=== PATIENT | male | born 1955 | race Caucasian/White ===

== ENCOUNTER 2020-06-17 10:20 | Observation (INO) | payer OTHER ==
[2020-06-17 14:56] LABS: INFLUENZA A NEGATIVE (NEGATIVE); INFLUENZA B NEGATIVE (NEGATIVE); RESPIRATORY SYNCTIAL VIRUS NEGATIVE (Negative)
[2020-06-17] MEDS: Sodium Chloride 0.9% 1000 ML 1,000 ML IV SCH ×2 (15:39→20:54)
[2020-06-17 16:32] LABS: Absolute Neutrophil Ct (ANC) 6.48 (1.4-6.9); BASOPHIL % 0.2 % (0.0-0.4); Basophil (Absolute #) 0.02 (0-0.4); Eosinophil % 2.3 % (0.00-5.0); Eosinophil (Absolute #) 0.21 (0-0.5); Hematocrit 45.9 % (42-50); Lymphocyte (Absolute #) 1.73 (1.0-4.6); Lymphocytes % 18.7 % (24.0-44.0); Mean Cell Volume 89.8 fl (78-100); Mean Corpuscular Hemoglobin 29.4 pg (26-32); Mean Corpuscular Hgb Concent. 32.7 g/dl (32-36); Mean Platelet Volume 9.9 fl (7.5-11.0); Monocyte (Absolute #) 0.82 (0.0-1.3); Monocytes % 8.9 % (0.0-12.0); Neutrophil % 69.9 % (36.0-66.0); Platelet Count 222 K/mm3 (150-450); Red Blood Count 5.11 M/mm3 (4.1-5.6); Red Cell Distribution Width 13.4 % (11.5-14.0); White Blood Count 9.3 K/mm3 (4.0-10.5)
[2020-06-17 16:44] LABS: ALBUMIN 4.6 g/dL (3.5-5.0); ALKALINE PHOSPHATASE 68 U/L (38-126); AMYLASE 125 U/L (30-110); ANION GAP 14.3 MEQ/L (5-15); BLOOD UREA NITROGEN 25 mg/dL (9-20); CHLORIDE 101 mmol/L (98-107); Calcium 10.2 mg/dL (8.4-10.2); Carbon Dioxide 25 mmol/L (22-30); Creatinine 1 1.01 mg/dL (0.66-1.25); EST GLOMERULAR FILTRATION RATE > 60.0 ML/MIN; Glucose 146 mg/dL (74-106); LIPASE 365 U/L (23-300); Potassium 4.3 mmol/L (3.5-5.1); SGOT/AST 27 U/L (17-59); SGPT/ALT 20 U/L (0-50); SODIUM 136 mmol/L (137-145); Total Protein 7.2 g/dL (6.3-8.2)
[2020-06-17] MEDS ORDERED: PROTONIX 40 MG IV IV ONE (18:13)
[2020-06-17] MEDS ORDERED: Ambien 10 MG PO SCH (22:00)
--- NOTE | 2020-06-17 22:14 | PCM.HP ---
History of Present Illness - Chief Complaint Chief Complaint: pancreatitis Date: 06/17/20 History of Present Illness: is a 64 year old male seen in clinic yesterday for reported diarrhea for one month. Following clinic visit patient had labs drawn which demonstrated he had acute pancreatitis and FOBT positive. Patient reports he is currently pain free but had umbilical abdominal pain during yesterday's exam. He reports dark tarry stools. He stated today he had a similar episode 1.5 years ago and had colonoscopy which he reports was normal but showed diverticulosis. , present at bedside had wanted him to see a doctor due to the weight loss he has had over the past month. Patient denies fevers nausea or vomiting. Denies much alcohol use. Reports he still has his GB. Denies eating a diverticulosis diet. He went to [facility] prior to admission and ate cookies and other food items in anticipation of being admitted but had been eating a BRAT type diet up to that point. He was covid tested as part of the admission process and was found to be covid neg. Medications & Allergies Home Medications: Home Medication List Acetaminophen/Dp-Hydram HCl [Tylenol Pm Ex-Strength Geltab] 1 each PO QHS 12/19/14 [History Confirmed 06/17/20] Atorvastatin Calcium [Lipitor] 20 mg PO DAILY 12/19/14 [History Confirmed 06/17/20] Testosterone [Axiron] 90 ml TD UD 12/19/14 [History Confirmed 06/17/20] Zolpidem Tartrate [Ambien Cr] 12.5 mg PO QHS 12/19/14 [History Confirmed 06/17/20] Acetaminophen [Tylenol Extra Strength] 500 mg PO HS 06/17/20 [History Confirmed 06/17/20] Aspirin EC 325 mg [Ecotrin 325 MG] 0.5 tab PO DAILY 06/17/20 [History Confirmed 06/17/20] Celecoxib [Celebrex] 400 mg PO BID 06/17/20 [History Confirmed 06/17/20] Duloxetine HCl [Cymbalta] 60 mg PO DAILY 06/17/20 [History Confirmed 06/17/20] Famotidine [Pepcid] 40 mg PO HS 06/17/20 [History Confirmed 06/17/20] Ketoconazole Cream [Nizoral CREAM] 1 gm TOP DAILY 06/17/20 [History Confirmed 06/17/20] Melatonin 10 mg PO HS 06/17/20 [History Confirmed 06/17/20] Metformin HCl 500 mg [Glucophage 500 MG] 500 mg PO BID 06/17/20 [History Confirmed 06/17/20] Multivitamin 1 each PO DAILY 06/17/20 [History Confirmed 06/17/20] Urea [Urea 40] 236 ml TP HS 06/17/20 [History Confirmed 06/17/20] Allergies/Adverse Reactions: Allergies Allergy/AdvReac Type Severity Reaction Status Date / Time No Known Drug Allergies Allergy Verified 06/17/20 15:55 - Past Medical History Past Medical History: Yes Neurological History: No Pertinent History ENT History: No Pertinent History Cardiac History: High Cholesterol Respiratory History: No Pertinent History Endocrine Medical History: Diabetes Type II Musculoskelatal History: No Pertinent History GI Medical History: Ulcer History: No Pertinent History Pyscho-Social History: No Pertinent History Male Reproductive Disorders: No Pertinent History Comment: colonoscopy, skin cancer removed chest - Past Surgical History Past Surgical History: Yes Neuro Surgical History: No Pertinent History Cardiac History: Cardiac Catheterization Respiratory Surgery: No Pertinent History GI Surgical History: Hemorrhoidectomy, Hernia Repair Genitourinary Surgical Hx: No Pertinent History Musculskeletal Surgical Hx: Other Male Surgical History: No Pertinent History Other Surgical History: rotator cuff repair. tonsillectomy - Social History Smoking Status: Former smoker Exposure to second hand smoke: No Alcohol: None Drug Use: none - Physical Exam Vital Signs: Vital Signs - 24 hr Temp Pulse Resp BP Pulse Ox 06/17/20 19:26 97.5 F 80 18 110/67 93 L 06/17/20 16:00 97.6 F 96 H 20 122/75 94 L 06/17/20 15:55 97.6 F 96 H 20 122/75 96 Results - Labs Lab/Micro Results: Lab Results-Last 24 Hours 06/17/20 06/17/20 06/17/20 Range/Units 14:07 15:41 16:24 WBC 9.3 (4.0-10.5) K/mm3 RBC 5.11 (4.1-5.6) M/mm3 Hgb 15.0 (12.5-18.0) gm/dl Hct 45.9 (42-50) % MCV 89.8 (78-100) fl MCH 29.4 (26-32) pg MCHC 32.7 (32-36) g/dl RDW 13.4 (11.5-14.0) % Plt Count 222 (150-450) K/mm3 MPV 9.9 (7.5-11.0) fl Gran % 69.9 H (36.0-66.0) % Eos # (Auto) 0.21 (0-0.5) Absolute Lymphs (auto) 1.73 (1.0-4.6) Absolute Monos (auto) 0.82 (0.0-1.3) Lymphocytes % 18.7 L (24.0-44.0) % Monocytes % 8.9 (0.0-12.0) % Eosinophils % 2.3 (0.00-5.0) % Basophils % 0.2 (0.0-0.4) % Absolute Granulocytes 6.48 (1.4-6.9) Basophils # 0.02 (0-0.4) Sodium (137-145) mmol/L Potassium (3.5-5.1) mmol/L Chloride (98-107) mmol/L Carbon Dioxide (22-30) mmol/L Anion Gap (5-15) MEQ/L BUN (9-20) mg/dL Creatinine (0.66-1.25) mg/dL Estimated GFR ML/MIN Glucose (74-106) mg/dL POC Glucometer 156 H (74 to 106) mg/dL Calcium (8.4-10.2) mg/dL Total Bilirubin (0.2-1.3) mg/dL AST (17-59) U/L ALT (0-50) U/L Alkaline Phosphatase (38-126) U/L Serum Total Protein (6.3-8.2) g/dL Albumin (3.5-5.0) g/dL Amylase (30-110) U/L Lipase (23-300) U/L Influenza Type A Ag NEGATIVE (NEGATIVE) Influenza Type B Ag NEGATIVE (NEGATIVE) RSV (PCR) NEGATIVE (Negative) SARS-CoV-2 (PCR) NEGATIVE (NEGATIVE) 06/17/20 06/17/20 Range/Units 16:24 20:41 WBC (4.0-10.5) K/mm3 RBC (4.1-5.6) M/mm3 Hgb (12.5-18.0) gm/dl Hct (42-50) % MCV (78-100) fl MCH (26-32) pg MCHC (32-36) g/dl RDW (11.5-14.0) % Plt Count (150-450) K/mm3 MPV (7.5-11.0) fl Gran % (36.0-66.0) % Eos # (Auto) (0-0.5) Absolute Lymphs (auto) (1.0-4.6) Absolute Monos (auto) (0.0-1.3) Lymphocytes % (24.0-44.0) % Monocytes % (0.0-12.0) % Eosinophils % (0.00-5.0) % Basophils % (0.0-0.4) % Absolute Granulocytes (1.4-6.9) Basophils # (0-0.4) Sodium 136 L (137-145) mmol/L Potassium 4.3 (3.5-5.1) mmol/L Chloride 101 (98-107) mmol/L Carbon Dioxide 25 (22-30) mmol/L Anion Gap 14.3 (5-15) MEQ/L BUN 25 H (9-20) mg/dL Creatinine 1.01 (0.66-1.25) mg/dL Estimated GFR > 60.0 ML/MIN Glucose 146 H (74-106) mg/dL POC Glucometer 83 (74 to 106) mg/dL Calcium 10.2 (8.4-10.2) mg/dL Total Bilirubin 0.30 (0.2-1.3) mg/dL AST 27 (17-59) U/L ALT 20 (0-50) U/L Alkaline Phosphatase 68 (38-126) U/L Serum Total Protein 7.2 (6.3-8.2) g/dL Albumin 4.6 (3.5-5.0) g/dL Amylase 125 H (30-110) U/L Lipase 365 H (23-300) U/L Influenza Type A Ag (NEGATIVE) Influenza Type B Ag (NEGATIVE) RSV (PCR) (Negative) SARS-CoV-2 (PCR) (NEGATIVE) - Radiology Impressions Radiology Exams & Impressions: Radiology Procedures Category Date Time Status ABDOMEN AND PELVIS W&WO CONTRA [CT] Stat Exams 06/17/20 17:30 Taken Assessment/Plan (1) Pancreatitis Current Visit: Yes Status: Acute Assessment & Plan: 64 yr old male admitted for observation for acute pancreatitis. Patient had repeat labs today which have trended down. He is getting IV fluids 250ml per hour and was made NPO. CT scan was ordered results pending. Patient denies pain at this time. Will transition patient to clear liquid diet and see if he continues to be pain free. Resumed his ambien for sleep. Held most home medications until CT scan is read. Patient may require surgery consult based on findings. Patient will need repeat CMP in am. Code(s): K85.90 - ACUTE PANCREATITIS WITHOUT NECROSIS OR INFECTION, UNSP (2) Occult blood in stools Current Visit: Yes Status: Acute Assessment & Plan: Hx of diverticulosis differentials include diverticulitis flare IBD PUD or other etiology. CT results still pending. Patient was started on protonix 1 time dose but depending on CT results may continue with this medication. Aspirin and celebrex were held for time being.Will consider antibiotics if diverticulitis is present (3) Diarrhea Current Visit: Yes Status: Acute Assessment & Plan: GI panel for stool was ordered yesterday as an outpatient results still pending. Patient may have diverticulitis flare or other etiology causing symptoms. He has lost weight over the past month. Will follow up on CT and get possible surgery consult or have patient follow up with GI as outpatient. Code(s): R19.7 - DIARRHEA, UNSPECIFIED (4) Diabetes Current Visit: Yes Status: Acute Assessment & Plan: Holding metformin due to CT scan. Patient is transitioning to clears. Will get BS AC and HS and place patient on low dose sliding scale if needed. Code(s): E11.9 - TYPE 2 DIABETES MELLITUS WITHOUT COMPLICATIONS (5) Mixed anxiety and depressive disorder Current Visit: Yes Status: Acute Assessment & Plan: Will plan to resume his home med in am iif CT is wnl. (6) Insomnia Current Visit: Yes Status: Acute Assessment & Plan: Patient will continue his routine ambien PO. reports he wont sleep if he is not given this medication. Avoiding PO until CT scan is read. Code(s): G47.00 - INSOMNIA, UNSPECIFIED
[2020-06-18] MEDS: Sodium Chloride 0.9% 1000 ML 1,000 ML IV SCH ×3 (01:13→09:35)
--- NOTE | 2020-06-18 08:41 | XRAY ---
Indication: Diarrhea one month. Acute pancreatitis. Multiple contiguous axial images obtained through the abdomen and pelvis prior to and following 80 cc Isovue 370 contrast as ordered. Comparison: None Lung bases are clear. Heart is not enlarged. Noncontrasted images demonstrates 3 mm nonobstructing right renal calculus and tiny appendicolith. No other visceral calcifications/calculi. Noncontrasted stomach and bowel loops appear nonobstructed. No free fluid/air. Postcontrast images demonstrates normal visceral enhancement and renal excretion. Right kidney demonstrates 4.6 cm parapelvic cyst. Remaining liver, gallbladder, pancreas, spleen, adrenal glands, kidneys, ureters, and bladder appear normal in CT appearance and attenuation. Mild scattered aortoiliac calcifications. No AAA or pathologic retroperitoneal lymphadenopathy. Osseous structures intact with mild/moderate multilevel degenerative spondylosis, greatest lumbar spine. Small fatty right inguinal hernia. Impression: 1. Nonobstructing right renal micro-calculus, right renal parapelvic cyst, fatty right inguinal hernia, appendicolith, and chronic bony findings. 2. Remaining CT abdomen/pelvis with and without contrast exam is negative.
--- NOTE | 2020-06-18 09:21 | PCM.NOTE ---
Date and Time: 06/18/2015 Subjective Assessment: patient denies pain today, states he feels well and wants to go home. denies vomiting or diarrhea overnight. Objective Exam General Appearance: no apparent distress, alert Respiratory Exam: normal breath sounds, lungs clear, No respiratory distress Cardiovascular Exam: regular rate/rhythm, normal heart sounds Gastrointestinal/Abdomen Exam: soft, No tenderness, No mass OBJECTIVE DATA Vital Signs: Vital Signs - 24 hr Temp Pulse Resp BP Pulse Ox 06/18/20 08:00 98.0 F 77 16 113/74 95 06/18/20 03:59 97.3 F 77 19 142/69 95 06/18/20 00:00 97.7 F 74 19 137/77 96 06/17/20 19:26 97.5 F 80 18 110/67 93 L 06/17/20 16:00 97.6 F 96 H 20 122/75 94 L 06/17/20 15:55 97.6 F 96 H 20 122/75 96 Pain Assessment - Last Documented Pain Intensity 0 Intake and Output: Intake & Output 06/15/20 06/16/20 06/17/20 06/18/20 11:59 11:59 11:59 11:59 Intake Total 3894 Balance 3894 Weight 76.8 kg Lab Results: Lab Results-Last 24 Hours 06/17/20 06/17/20 06/17/20 Range/Units 14:07 15:41 16:24 WBC 9.3 (4.0-10.5) K/mm3 RBC 5.11 (4.1-5.6) M/mm3 Hgb 15.0 (12.5-18.0) gm/dl Hct 45.9 (42-50) % MCV 89.8 (78-100) fl MCH 29.4 (26-32) pg MCHC 32.7 (32-36) g/dl RDW 13.4 (11.5-14.0) % Plt Count 222 (150-450) K/mm3 MPV 9.9 (7.5-11.0) fl Gran % 69.9 H (36.0-66.0) % Eos # (Auto) 0.21 (0-0.5) Absolute Lymphs (auto) 1.73 (1.0-4.6) Absolute Monos (auto) 0.82 (0.0-1.3) Lymphocytes % 18.7 L (24.0-44.0) % Monocytes % 8.9 (0.0-12.0) % Eosinophils % 2.3 (0.00-5.0) % Basophils % 0.2 (0.0-0.4) % Absolute Granulocytes 6.48 (1.4-6.9) Basophils # 0.02 (0-0.4) Sodium (137-145) mmol/L Potassium (3.5-5.1) mmol/L Chloride (98-107) mmol/L Carbon Dioxide (22-30) mmol/L Anion Gap (5-15) MEQ/L BUN (9-20) mg/dL Creatinine (0.66-1.25) mg/dL Estimated GFR ML/MIN Glucose (74-106) mg/dL POC Glucometer 156 H (74 to 106) mg/dL Calcium (8.4-10.2) mg/dL Total Bilirubin (0.2-1.3) mg/dL AST (17-59) U/L ALT (0-50) U/L Alkaline Phosphatase (38-126) U/L Serum Total Protein (6.3-8.2) g/dL Albumin (3.5-5.0) g/dL Amylase (30-110) U/L Lipase (23-300) U/L Influenza Type A Ag NEGATIVE (NEGATIVE) Influenza Type B Ag NEGATIVE (NEGATIVE) RSV (PCR) NEGATIVE (Negative) SARS-CoV-2 (PCR) NEGATIVE (NEGATIVE) 06/17/20 06/17/20 06/18/20 Range/Units 16:24 20:41 07:10 WBC (4.0-10.5) K/mm3 RBC (4.1-5.6) M/mm3 Hgb (12.5-18.0) gm/dl Hct (42-50) % MCV (78-100) fl MCH (26-32) pg MCHC (32-36) g/dl RDW (11.5-14.0) % Plt Count (150-450) K/mm3 MPV (7.5-11.0) fl Gran % (36.0-66.0) % Eos # (Auto) (0-0.5) Absolute Lymphs (auto) (1.0-4.6) Absolute Monos (auto) (0.0-1.3) Lymphocytes % (24.0-44.0) % Monocytes % (0.0-12.0) % Eosinophils % (0.00-5.0) % Basophils % (0.0-0.4) % Absolute Granulocytes (1.4-6.9) Basophils # (0-0.4) Sodium 136 L (137-145) mmol/L Potassium 4.3 (3.5-5.1) mmol/L Chloride 101 (98-107) mmol/L Carbon Dioxide 25 (22-30) mmol/L Anion Gap 14.3 (5-15) MEQ/L BUN 25 H (9-20) mg/dL Creatinine 1.01 (0.66-1.25) mg/dL Estimated GFR > 60.0 ML/MIN Glucose 146 H (74-106) mg/dL POC Glucometer 83 86 (74 to 106) mg/dL Calcium 10.2 (8.4-10.2) mg/dL Total Bilirubin 0.30 (0.2-1.3) mg/dL AST 27 (17-59) U/L ALT 20 (0-50) U/L Alkaline Phosphatase 68 (38-126) U/L Serum Total Protein 7.2 (6.3-8.2) g/dL Albumin 4.6 (3.5-5.0) g/dL Amylase 125 H (30-110) U/L Lipase 365 H (23-300) U/L Influenza Type A Ag (NEGATIVE) Influenza Type B Ag (NEGATIVE) RSV (PCR) (Negative) SARS-CoV-2 (PCR) (NEGATIVE) Radiology Exams: Radiology Procedures Category Date Time Status ABDOMEN AND PELVIS W&WO CONTRA [CT] Stat Exams 06/17/20 17:30 Completed Assessment/Plan (1) Pancreatitis Current Visit: Yes Status: Acute Assessment & Plan: exam benign, repeat labs, tolerating clears. if enzymes improved will advance diet, possibly home this afternoon if tolerating po intake. Code(s): K85.90 - ACUTE PANCREATITIS WITHOUT NECROSIS OR INFECTION, UNSP (2) Occult blood in stools Current Visit: Yes Status: Acute Assessment & Plan: repeat labs, no further stools overnight. if h/h stable can likely have endoscopic evaluation as outpatient since patient desires discharge as soon as possible
[2020-06-18 09:35] LABS: ALBUMIN 3.5 g/dL (3.5-5.0); ALKALINE PHOSPHATASE 52 U/L (38-126); ANION GAP 10.3 MEQ/L (5-15); BLOOD UREA NITROGEN 13 mg/dL (9-20); CHLORIDE 106 mmol/L (98-107); Calcium 8.6 mg/dL (8.4-10.2); Carbon Dioxide 24 mmol/L (22-30); Creatinine 1 0.91 mg/dL (0.66-1.25); EST GLOMERULAR FILTRATION RATE > 60.0 ML/MIN; Glucose 134 mg/dL (74-106); Potassium 4.2 mmol/L (3.5-5.1); SGOT/AST 19 U/L (17-59); SGPT/ALT 16 U/L (0-50); SODIUM 136 mmol/L (137-145); Total Protein 5.8 g/dL (6.3-8.2)
[2020-06-18] MEDS ORDERED: Nizoral CREAM TOP SCH (10:00)
[2020-06-18 10:29] LABS: Absolute Neutrophil Ct (ANC) 3.63 (1.4-6.9); BASOPHIL % 0.5 % (0.0-0.4); Basophil (Absolute #) 0.03 (0-0.4); Eosinophil % 4.3 % (0.00-5.0); Eosinophil (Absolute #) 0.24 (0-0.5); Hematocrit 42.2 % (42-50); Hemoglobin 13.5 gm/dl (12.5-18.0); Lymphocyte (Absolute #) 1.14 (1.0-4.6); Lymphocytes % 20.2 % (24.0-44.0); Mean Cell Volume 91.7 fl (78-100); Mean Corpuscular Hemoglobin 29.3 pg (26-32); Mean Platelet Volume 9.5 fl (7.5-11.0); Monocyte (Absolute #) 0.59 (0.0-1.3); Monocytes % 10.5 % (0.0-12.0); Neutrophil % 64.5 % (36.0-66.0); Platelet Count 187 K/mm3 (150-450); Red Cell Distribution Width 13.4 % (11.5-14.0); White Blood Count 5.6 K/mm3 (4.0-10.5)
[2020-06-18 11:29] VITALS: BP 122/78; PULSE 70; O2SAT 99
--- NOTE | 2020-06-18 11:33 | PCM.DS ---
Discharge Summary Date of Admission: 06/17/20 15:24 Admitting Physician: GINA PRADO MD Primary Care Provider: GINA PRADO MD Allergies Allergies No Known Drug Allergies Allergy (Verified 06/17/20 15:55) Hospital Summary - Hospital Course Hospital Course: patient was admitted with pancreatitis, enzymes normalized on clears. heme + stool but h/h stable, had drop in hgb that was mild but has been receiving aggressive IV fluids at 250mL/hr - Vitals & Intake/Output Vital Signs: Vital Signs Temperature 98.0 F 06/18/20 08:00 Pulse Rate 77 06/18/20 08:00 Respiratory Rate 16 06/18/20 08:00 Blood Pressure 113/74 06/18/20 08:00 O2 Sat by Pulse Oximetry 95 06/18/20 08:00 Intake & Output: Intake & Output 06/15/20 06/16/20 06/17/20 06/18/20 11:59 11:59 11:59 11:59 Intake Total 4474 Balance 4474 Weight 76.8 kg - Lab Result Diagrams: 06/18/20 10:00 06/18/20 09:22 Lab Results-Last 24 Hrs: Lab Results-Last 24 Hours 06/17/20 06/17/20 06/17/20 Range/Units 14:07 15:41 16:24 WBC 9.3 (4.0-10.5) K/mm3 RBC 5.11 (4.1-5.6) M/mm3 Hgb 15.0 (12.5-18.0) gm/dl Hct 45.9 (42-50) % MCV 89.8 (78-100) fl MCH 29.4 (26-32) pg MCHC 32.7 (32-36) g/dl RDW 13.4 (11.5-14.0) % Plt Count 222 (150-450) K/mm3 MPV 9.9 (7.5-11.0) fl Gran % 69.9 H (36.0-66.0) % Eos # (Auto) 0.21 (0-0.5) Absolute Lymphs (auto) 1.73 (1.0-4.6) Absolute Monos (auto) 0.82 (0.0-1.3) Lymphocytes % 18.7 L (24.0-44.0) % Monocytes % 8.9 (0.0-12.0) % Eosinophils % 2.3 (0.00-5.0) % Basophils % 0.2 (0.0-0.4) % Absolute Granulocytes 6.48 (1.4-6.9) Basophils # 0.02 (0-0.4) Sodium (137-145) mmol/L Potassium (3.5-5.1) mmol/L Chloride (98-107) mmol/L Carbon Dioxide (22-30) mmol/L Anion Gap (5-15) MEQ/L BUN (9-20) mg/dL Creatinine (0.66-1.25) mg/dL Estimated GFR ML/MIN Glucose (74-106) mg/dL POC Glucometer 156 H (74 to 106) mg/dL Calcium (8.4-10.2) mg/dL Total Bilirubin (0.2-1.3) mg/dL AST (17-59) U/L ALT (0-50) U/L Alkaline Phosphatase (38-126) U/L Serum Total Protein (6.3-8.2) g/dL Albumin (3.5-5.0) g/dL Amylase (30-110) U/L Lipase (23-300) U/L Influenza Type A Ag NEGATIVE (NEGATIVE) Influenza Type B Ag NEGATIVE (NEGATIVE) RSV (PCR) NEGATIVE (Negative) SARS-CoV-2 (PCR) NEGATIVE (NEGATIVE) 06/17/20 06/17/20 06/18/20 Range/Units 16:24 20:41 07:10 WBC (4.0-10.5) K/mm3 RBC (4.1-5.6) M/mm3 Hgb (12.5-18.0) gm/dl Hct (42-50) % MCV (78-100) fl MCH (26-32) pg MCHC (32-36) g/dl RDW (11.5-14.0) % Plt Count (150-450) K/mm3 MPV (7.5-11.0) fl Gran % (36.0-66.0) % Eos # (Auto) (0-0.5) Absolute Lymphs (auto) (1.0-4.6) Absolute Monos (auto) (0.0-1.3) Lymphocytes % (24.0-44.0) % Monocytes % (0.0-12.0) % Eosinophils % (0.00-5.0) % Basophils % (0.0-0.4) % Absolute Granulocytes (1.4-6.9) Basophils # (0-0.4) Sodium 136 L (137-145) mmol/L Potassium 4.3 (3.5-5.1) mmol/L Chloride 101 (98-107) mmol/L Carbon Dioxide 25 (22-30) mmol/L Anion Gap 14.3 (5-15) MEQ/L BUN 25 H (9-20) mg/dL Creatinine 1.01 (0.66-1.25) mg/dL Estimated GFR > 60.0 ML/MIN Glucose 146 H (74-106) mg/dL POC Glucometer 83 86 (74 to 106) mg/dL Calcium 10.2 (8.4-10.2) mg/dL Total Bilirubin 0.30 (0.2-1.3) mg/dL AST 27 (17-59) U/L ALT 20 (0-50) U/L Alkaline Phosphatase 68 (38-126) U/L Serum Total Protein 7.2 (6.3-8.2) g/dL Albumin 4.6 (3.5-5.0) g/dL Amylase 125 H (30-110) U/L Lipase 365 H (23-300) U/L Influenza Type A Ag (NEGATIVE) Influenza Type B Ag (NEGATIVE) RSV (PCR) (Negative) SARS-CoV-2 (PCR) (NEGATIVE) 06/18/20 06/18/20 06/18/20 Range/Units 09:22 10:00 10:00 WBC 5.6 (4.0-10.5) K/mm3 RBC 4.60 (4.1-5.6) M/mm3 Hgb 13.5 (12.5-18.0) gm/dl Hct 42.2 (42-50) % MCV 91.7 (78-100) fl MCH 29.3 (26-32) pg MCHC 32.0 (32-36) g/dl RDW 13.4 (11.5-14.0) % Plt Count 187 (150-450) K/mm3 MPV 9.5 (7.5-11.0) fl Gran % 64.5 (36.0-66.0) % Eos # (Auto) 0.24 (0-0.5) Absolute Lymphs (auto) 1.14 (1.0-4.6) Absolute Monos (auto) 0.59 (0.0-1.3) Lymphocytes % 20.2 L (24.0-44.0) % Monocytes % 10.5 (0.0-12.0) % Eosinophils % 4.3 (0.00-5.0) % Basophils % 0.5 (0.0-0.4) % Absolute Granulocytes 3.63 (1.4-6.9) Basophils # 0.03 (0-0.4) Sodium 136 L (137-145) mmol/L Potassium 4.2 (3.5-5.1) mmol/L Chloride 106 (98-107) mmol/L Carbon Dioxide 24 (22-30) mmol/L Anion Gap 10.3 (5-15) MEQ/L BUN 13 (9-20) mg/dL Creatinine 0.91 (0.66-1.25) mg/dL Estimated GFR > 60.0 ML/MIN Glucose 134 H (74-106) mg/dL POC Glucometer (74 to 106) mg/dL Calcium 8.6 D (8.4-10.2) mg/dL Total Bilirubin 0.50 (0.2-1.3) mg/dL AST 19 (17-59) U/L ALT 16 (0-50) U/L Alkaline Phosphatase 52 (38-126) U/L Serum Total Protein 5.8 L (6.3-8.2) g/dL Albumin 3.5 (3.5-5.0) g/dL Amylase (30-110) U/L Lipase 81 (23-300) U/L Influenza Type A Ag (NEGATIVE) Influenza Type B Ag (NEGATIVE) RSV (PCR) (Negative) SARS-CoV-2 (PCR) (NEGATIVE) 06/18/20 Range/Units 10:00 WBC (4.0-10.5) K/mm3 RBC (4.1-5.6) M/mm3 Hgb (12.5-18.0) gm/dl Hct (42-50) % MCV (78-100) fl MCH (26-32) pg MCHC (32-36) g/dl RDW (11.5-14.0) % Plt Count (150-450) K/mm3 MPV (7.5-11.0) fl Gran % (36.0-66.0) % Eos # (Auto) (0-0.5) Absolute Lymphs (auto) (1.0-4.6) Absolute Monos (auto) (0.0-1.3) Lymphocytes % (24.0-44.0) % Monocytes % (0.0-12.0) % Eosinophils % (0.00-5.0) % Basophils % (0.0-0.4) % Absolute Granulocytes (1.4-6.9) Basophils # (0-0.4) Sodium (137-145) mmol/L Potassium (3.5-5.1) mmol/L Chloride (98-107) mmol/L Carbon Dioxide (22-30) mmol/L Anion Gap (5-15) MEQ/L BUN (9-20) mg/dL Creatinine (0.66-1.25) mg/dL Estimated GFR ML/MIN Glucose (74-106) mg/dL POC Glucometer (74 to 106) mg/dL Calcium (8.4-10.2) mg/dL Total Bilirubin (0.2-1.3) mg/dL AST (17-59) U/L ALT (0-50) U/L Alkaline Phosphatase (38-126) U/L Serum Total Protein (6.3-8.2) g/dL Albumin (3.5-5.0) g/dL Amylase 61 (30-110) U/L Lipase (23-300) U/L Influenza Type A Ag (NEGATIVE) Influenza Type B Ag (NEGATIVE) RSV (PCR) (Negative) SARS-CoV-2 (PCR) (NEGATIVE) Micro Results-Entire Visit: Accuchecks Date 06/18/20 Date 06/17/20 Time 07:12 Time 22:00 - Radiology Exams Ordered Rad Exams-Entire Visit: Radiology Procedures Category Date Time Status ABDOMEN AND PELVIS W&WO CONTRA [CT] Stat Exams 06/17/20 17:30 Completed Discharge Exam General Appearance: no apparent distress, alert Respiratory Exam: normal breath sounds, lungs clear, No respiratory distress Cardiovascular Exam: regular rate/rhythm, normal heart sounds Gastrointestinal/Abdomen Exam: soft, No tenderness, No mass Extremity Exam: normal inspection, normal range of motion Skin Exam: normal color, warm, dry Final Diagnosis/Problem List - Final Discharge Diagnosis/Problem (1) Pancreatitis Current Visit: Yes Status: Acute Assessment & Plan: resolved, home on bland diet Code(s): K85.90 - ACUTE PANCREATITIS WITHOUT NECROSIS OR INFECTION, UNSP (2) Occult blood in stools Current Visit: Yes Status: Acute Assessment & Plan: will need f/u with Dr Prado and scheduled outpatient for egd/colonoscopy. stop aspirin and celebrex, add PPI therapy - Discharge Disposition: Home, Self-Care Condition: Stable Prescriptions: New Omeprazole 40 mg PO DAILY #30 capsule.dr Continue Atorvastatin Calcium [Lipitor] 20 mg PO DAILY Testosterone [Axiron] 90 ml TD UD Zolpidem Tartrate [Ambien Cr] 12.5 mg PO QHS Acetaminophen/Dp-Hydram HCl [Tylenol Pm Ex-Strength Geltab] 1 each PO QHS Multivitamin 1 each PO DAILY Metformin HCl 500 mg [Glucophage 500 MG] 500 mg PO BID Duloxetine HCl [Cymbalta] 60 mg PO DAILY Famotidine [Pepcid] 40 mg PO HS Melatonin 10 mg PO HS Ketoconazole Cream [Nizoral CREAM] 1 gm TOP DAILY Urea [Urea 40] 236 ml TP HS Acetaminophen [Tylenol Extra Strength] 500 mg PO HS Discontinued Aspirin EC 325 mg [Ecotrin 325 MG] 0.5 tab PO DAILY Celecoxib [Celebrex] 400 mg PO BID Follow up with: GINA PRADO MD [Primary Care Provider] - 1 Week
[2020-06-18] MEDS ORDERED: Ambien 5 MG Tablet PO SCH (22:00)
== END 2020-06-18 13:40 | disposition home or self-care (01) ==
LOC: MED SURG 15:24
PROVIDERS: ADMIT Family Medicine; ATTEND Family Medicine
DX: K85.90 Acute pancreatitis without necrosis or infection, unspecified (principal); K92.1 Melena; Z79.899 Other long term (current) drug therapy; E11.9 Type 2 diabetes mellitus without complications; E78.00 Pure hypercholesterolemia, unspecified; R19.7 Diarrhea, unspecified; F41.8 Other specified anxiety disorders; G47.00 Insomnia, unspecified
CPT/HCPCS: 0241U; 36415; 74178; 80053; 82150; 82947; 83690; 85025; G0378; A9270-GY

== ENCOUNTER 2021-10-28 16:00 | Day surgery (SDC) | payer MEDICARE ==
[2021-10-28] MEDS ORDERED: XYLOCAINE-MPF 1% 5ML SDV IJ ONE (16:01)
[2021-10-28] MEDS ORDERED: Depo-Medrol 40 MG/ML IM ONE (16:01)
[2021-10-28] MEDS ORDERED: Marcaine Mpf 0.5% Vial 30 Ml IJ ONE (16:01)
--- NOTE | 2021-10-28 19:57 | XRAY ---
Indication: Left shoulder injection. Intraoperative fluoroscopy provided for 18 seconds. Single digital spot image submitted for interpretation demonstrates needle tip projecting over the left glenohumeral joint superiorly. Small amount of contrast injected for needle tip placement. Correlate with intraoperative findings/report.
--- NOTE | 2021-10-28 20:00 | XRAY ---
Indication: Right shoulder injection. Intraoperative fluoroscopy provided for 11 seconds. Single digital spot image submitted for interpretation demonstrates needle tip projecting over the right glenohumeral joint superiorly. Small amount of contrast injected for needle tip placement. Correlate with intraoperative findings/report.
--- NOTE | 2021-10-29 09:20 | XRAY ---
18 seconds of fluoroscopy was used in surgery for a left shoulder intra-articular injections.
--- NOTE | 2021-10-29 09:21 | XRAY ---
11 seconds of fluoroscopy was in surgery for a right shoulder intra-articular injection.
== END 2021-10-28 18:45 | disposition home or self-care (01) ==
LOC: SDC-PAIN 16:00
PROVIDERS: ATTEND Psychiatry & Neurology Pain Medicine
DX: M19.012 Primary osteoarthritis, left shoulder (principal); M19.011 Primary osteoarthritis, right shoulder; E11.9 Type 2 diabetes mellitus without complications; Z79.899 Other long term (current) drug therapy
CPT/HCPCS: 20610; 73030; 77002; 82947; J1030; Q9966